=== PATIENT | female | born 1970 | race Caucasian/White ===

== ENCOUNTER → 2016-12-23 | Outpatient (CLI) | payer OTHER ==
[~2016-12-23] MED LIST: ALLERGY10 M1 PO; BUPROPION HCL150 M3 PO; COCONUT OIL1000 MG PO; FLAXSEED OIL1000 M1 PO; IRON1 TAB PO; LOSARTAN POTAS100 MG PO; POTASSIUM CHLO20 ME1 PO; TRIAMTERENE-HC1 EACH PO; VITAMIN D PO
--- NOTE | ~2016-12-23 | MY29 ---
[facility] A Service of [facility] RADIOLOGY TEXT RESULTS PATIENT: ANKITA PARSON LOCATION: [facility] : 66 UNIT #: [id number] AGE: [address]: Shelley Lyons MD SEX: F ORDER DR: [id number] [facility]. [place], [place] [address] [id number] O MR#: [id number] Acc #: [id number] NAME: ANKITA PARSON : 1970 SEX: F STUDY DATE/TIME: 12/23/2016 9:40 UNIT: [facility] ROOM: STUDY DESCRIPTION: MY DARRELL SCREENING W/ CAD BILAT Attending Physician: Shelley Lyons M.D. Referring Physician: Shelley Lyons M.D. Ordering Physician: Shelley Lyons M.D. Primary Care Physician: Shelley Lyons M.D. MEDICAL IMAGING REPORT This report is preliminary unless electronic signature is present EXAM Digital screening mammogram, 12/23/2016, [facility]. HISTORY 46-year-old woman positive family history, mother. Annual screen. COMPARISON Mammograms date to 12/13/2007 with most recent 12/20/2015. FINDINGS Digital imaging of each breast was completed utilizing a two-view examination of each breast in craniocaudal and mediolateral-oblique projections. Review and interpretation of digital mammograms include a second review in conjunction with FDA-approved CAD device. There is a normal parenchymal presentation bilaterally consistent with the patient's age. There are no breast masses imaged and no parenchymal asymmetry is visualized. There are no suspicious microcalcifications and I see no focal architectural disturbance. IMPRESSION Negative screening digital mammogram. One-year followup recommended. Patients over the age of 40 are entered into a reminder system with target due date for the next mammogram. A result letter will also be sent to the patient. BIRADS: 1 Negative Dictated by... Inocencio Mckinney M.D. [facility] A Service [facility] RADIOLOGY TEXT RESULTS PATIENT: ANKITA PARSON LOCATION: [facility] : 66 UNIT #: [id number] AGE: [address]: Shelley Lyons MD SEX: F ORDER DR: THIS IS AN ELECTRONICALLY VERIFIED REPORT Inocencio Mckinney M.D. at 12/23/2016 3:18 PM Tracy TD: 12/23/2016 14:08 JOB #: [id number] MEDICAL IMAGING REPORT Page 1 of 1 COPY
== END | disposition home or self-care (01) ==
LOC: CWCC 09:10
DX: Z12.31 Encounter for screening mammogram for malignant neoplasm of breast (principal); Z80.3 Family history of malignant neoplasm of breast
CPT/HCPCS: G0202